=== PATIENT | female | born 1960 | race Caucasian/White ===

== ENCOUNTER → 2018-04-08 21:55 | Outpatient (CLI) | payer OTHER, SELFPAY ==
[2018-04-08 17:43] VITALS: BMI 21.8
[2018-04-08 21:57] LABS: Lyme Ab Screen Interpretation REF LAB
[2018-04-08 22:03] LABS: Absolute Lymphocyte Count 2.43 X10^3/ul (0.83-4.51); Absolute Neutrophil Count 3.9 X10^3/uL (2.0-7.7); Basophil# 0.02 X10^3/uL; Basophil% 0.3 % (0-1); Eosinophil# 0.14 X10^3/uL; Hematocrit 43.2 % (37-47); Hemoglobin 14.3 g/dl (12.0-15.0); Lymphocyte # 2.43 X10^3/ul (4.0); Lymphocyte % 34.6 % (19-41); Mean Corp Hgb Conc 33.1 g/gl (32-36); Mean Corpuscular Hgb 29.2 pg (27.0-32.0); Mean Corpuscular Volume 88.2 fL (81-99); Monocyte# 0.49 X10^3/uL; Neutrophil # 3.93 X10^3/uL (2.7-7.7); POSITIVE COUNT NO; POSITIVE DIFFERENTIAL NO; POSITIVE MORPHOLOGY NO; Platelet Count 249 K/mm3 (150-450); RBC Distribution Width CV 12.5 % (11.6-14.6)
[2018-04-08 22:10] LABS: Erythrocyte Sedimentation Rate 1 mm/hr (0-30)
[2018-04-10 20:09] LABS: Lyme Scn Total Ab w/Rflx <0.91 ISR (0.00-0.90)
== END ==
PROVIDERS: Referring Provider Nurse Practitioner; Visit Provider Nurse Practitioner
DX: M79.89 Other specified soft tissue disorders (principal)
CPT/HCPCS: 85025; 85652; 86618